=== PATIENT | female | born 1985 | race Caucasian/White ===

== ENCOUNTER 2024-06-09 10:41 | Outpatient (CLI) | payer BC | END 2024-06-09 10:42 | disposition home or self-care (01) | LOC: SCSRAD 10:41 | PROVIDERS: ATTEND Nurse Practitioner Family | DX: R50.9 Fever, unspecified (principal); J18.1 Lobar pneumonia, unspecified organism | CPT/HCPCS: 71046 ==

== ENCOUNTER 2024-06-21 11:30 | Emergency (ER) | payer BC ==
[2024-06-21 12:36] LABS: #Basophils 0.07 10x3/uL (0.0-0.2); %Eosinophils 0.8 % (0.0-10.0); %Lymphocytes 31.6 % (21.0-51.0); %Monocytes 6.4 % (0.0-10.0); %Neutrophils 59.9 % (42.0-75.0); Hematocrit 43.1 % (36.0-47.0); Hemoglobin 14.7 g/dL (12.0-16.0); Mean Corpuscular HGB CONC 34.1 g/dL (32.0-36.0); Mean Corpuscular Hemoglobin 31.7 pg (27.0-31.0); Mean Corpuscular Volume 92.9 fL (78.0-98.0); Mean Platelet Volume 8.6 fL (7.4-10.4); Platelet Count 356 10x3/uL (130-400); RBC Distribution Width 12.5 % (11.5-14.5); Red Blood Cell (RBC) Count 4.64 mill/uL (4.20-5.40)
[2024-06-21 13:03] LABS: ALT (SGPT) 23 U/L (8-55); AST (SGOT) 18 U/L (5-34); Albumin 3.5 g/dL (3.5-5.0); Alkaline Phosphatase 60 U/L (40-110); Anion Gap 13 mmol/L (10-20); BUN (Urea Nitrogen) 16 mg/dL (7.0-18.7); Bilirubin, Total 0.4 mg/dL (0.2-1.2); Calc. Creatinine Clearance 0 mL/min (70-130); Calcium 9.1 mg/dL (7.8-10.44); Carbon Dioxide 18 mmol/L (22-29); Chloride 109 mmol/L (98-107); Estimated GFR 88; Glucose 99 mg/dL (70-105); Magnesium 1.9 mg/dL (1.6-2.6); Potassium 4.3 mmol/L (3.5-5.1); Protein, Total 7.5 g/dL (6.0-8.3); Sodium 136 mmol/L (136-145)
[2024-06-21 13:06] LABS: Troponin I Less than 0.010 ng/mL (< 0.028)
== END 2024-06-21 16:28 | disposition home or self-care (01) ==
LOC: ERS 11:30
DX: J18.9 Pneumonia, unspecified organism (principal); E03.9 Hypothyroidism, unspecified; Z79.899 Other long term (current) drug therapy
CPT/HCPCS: 71046; 80053; 83605; 83735; 83880; 84484; 85025; 87040; 87077; 87149; 93005; 94640; 94760

== ENCOUNTER 2024-06-22 16:44 | Observation (INO) | payer BC ==
[2024-06-22] MEDS ORDERED: cefTRIAXone (ROCEPHIN) 2 GM VIAL ONE (17:30)
[2024-06-22] MEDS ORDERED: Sodium Chloride 0.9% 100 ML ONE (17:30)
[2024-06-22 18:01] LABS: #Basophils 0.07 10x3/uL (0.0-0.2); %Basophils 1.1 % (0.0-1.0); %Eosinophils 1.2 % (0.0-10.0); %Monocytes 6.6 % (0.0-10.0); %Neutrophils 50.9 % (42.0-75.0); Hematocrit 41.5 % (36.0-47.0); Mean Corpuscular HGB CONC 33.7 g/dL (32.0-36.0); Mean Corpuscular Hemoglobin 31.5 pg (27.0-31.0); Mean Corpuscular Volume 93.3 fL (78.0-98.0); Mean Platelet Volume 8.9 fL (7.4-10.4); Platelet Count 301 10x3/uL (130-400); RBC Distribution Width 12.5 % (11.5-14.5); Red Blood Cell (RBC) Count 4.45 mill/uL (4.20-5.40)
[2024-06-22 18:22] LABS: ALT (SGPT) 20 U/L (8-55); AST (SGOT) 17 U/L (5-34); Albumin 3.4 g/dL (3.5-5.0); Alkaline Phosphatase 54 U/L (40-110); Anion Gap 14 mmol/L (10-20); BUN (Urea Nitrogen) 15 mg/dL (7.0-18.7); Bilirubin, Total 0.5 mg/dL (0.2-1.2); Calc. Creatinine Clearance 0 mL/min (70-130); Calcium 8.6 mg/dL (7.8-10.44); Carbon Dioxide 19 mmol/L (22-29); Chloride 107 mmol/L (98-107); Estimated GFR 100; Globulin 3.6 g/dL (2.4-3.5); Glucose 89 mg/dL (70-105); Potassium 4.2 mmol/L (3.5-5.1); Sodium 136 mmol/L (136-145)
[2024-06-22 19:41] LABS: Bacteria/HPF None Seen HPF (None Seen); Bilirubin Negative (Negative); Blood, Urine Negative (Negative); CAUTI Indications for Culture Immunosuppressed; Clarity Clear (Clear); Glucose, Urine (Dipstick) Normal (Negative); Ketone, Urine 10 mg/dL (Negative); Leukocyte Negative Leu/uL (Negative); Nitrite Negative (Negative); Protein, Urine (Dipstick) 10 mg/dL (Neg-Trace); RBC/HPF 0-3 HPF (0-3); Specific Gravity, Urine 1.028 (1.002-1.036); Urobilinogen Normal mg/dL (Less than 2); WBC/HPF 0-3 HPF (0-3); pH, Urine 6.5 (5.0-9.0)
[2024-06-22 19:42] LABS: Urine Culture Reflex No No; Urine Culture Reflex Yes Yes
[2024-06-22] MEDS ORDERED: Ondansetron PF 4 MG/2 ML Vial IVP PRN (20:46)
[2024-06-22] MEDS ORDERED: Calcium Carbonate 500 MG ChewTAB PO PRN (20:46)
[2024-06-22] MEDS ORDERED: Acetaminophen 650 MG Suppository PR PRN (20:46)
[2024-06-22] MEDS ORDERED: Ondansetron ODT 4 MG TAB PO PRN (20:46)
[2024-06-22] MEDS ORDERED: Senokot S 8.6-50 MG TAB PO PRN (20:46)
[2024-06-22] MEDS ORDERED: Acetaminophen 325 MG TAB PO PRN (20:46)
[2024-06-22] MEDS ORDERED: Albuterol 200 PUFF (6.7GM INHALER) INH PRN (20:49)
[2024-06-22] MEDS ORDERED: Benzonatate 100 MG CAP PO PRN (20:50)
[2024-06-22] MEDS ORDERED: Ketorolac Tromethamine 30 MG (1 mL) VIAL IVP PRN (21:00)
[2024-06-22] MEDS ORDERED: clonazePAM 0.5 MG TAB PO PRN (21:54)
[2024-06-22] MEDS ORDERED: Azithromycin 500 MG in Sodium Chloride 0.9% 250 ML 250 ML IVPB SCH (22:00)
[2024-06-22 23:16] VITALS: BMI 42.3
[2024-06-22] MEDS: Trospium 20 MG TAB PO SCH (23:47)
[2024-06-22] MEDS: Benztropine 1 MG TAB PO SCH (23:48)
[2024-06-22] MEDS: Divalproex Sodium DR 500 MG TAB PO SCH (23:48)
[2024-06-22] MEDS: Famotidine 20 MG TAB PO SCH (23:51)
[2024-06-23] MEDS: Levothyroxine Sodium 75 MCG TAB PO SCH (05:27)
[2024-06-23 06:17] LABS: #Basophils 0.05 10x3/uL (0.0-0.2); %Basophils 0.8 % (0.0-1.0); %Eosinophils 1.5 % (0.0-10.0); %Lymphocytes 57.3 % (21.0-51.0); %Monocytes 7.5 % (0.0-10.0); %Neutrophils 32.7 % (42.0-75.0); Hematocrit 38.1 % (36.0-47.0); Hemoglobin 12.9 g/dL (12.0-16.0); Mean Corpuscular HGB CONC 33.9 g/dL (32.0-36.0); Mean Corpuscular Hemoglobin 31.3 pg (27.0-31.0); Mean Corpuscular Volume 92.5 fL (78.0-98.0); Mean Platelet Volume 9.2 fL (7.4-10.4); Platelet Count 273 10x3/uL (130-400); RBC Distribution Width 12.6 % (11.5-14.5); Red Blood Cell (RBC) Count 4.12 mill/uL (4.20-5.40)
[2024-06-23 06:33] LABS: Anion Gap 11 mmol/L (10-20); BUN (Urea Nitrogen) 10 mg/dL (7.0-18.7); Carbon Dioxide 21 mmol/L (22-29); Chloride 108 mmol/L (98-107); Potassium 3.9 mmol/L (3.5-5.1); Sodium 136 mmol/L (136-145)
[2024-06-23 06:34] LABS: Calc. Creatinine Clearance 220 mL/min (70-130); Calcium 8.4 mg/dL (7.8-10.44); Estimated GFR 107; Glucose 97 mg/dL (70-105)
[2024-06-23] MEDS: Cefepime 1 GM in Sodium Chloride 0.9% 100 ML IVPB SCH (08:24)
[2024-06-23] MEDS: Trospium 20 MG TAB PO SCH (08:27)
[2024-06-23] MEDS: Divalproex Sodium DR 500 MG TAB PO SCH (08:27)
[2024-06-23] MEDS: Aripiprazole 15 MG TAB PO SCH (08:30)
[2024-06-23] MEDS: Benztropine 1 MG TAB PO SCH (08:31)
[2024-06-23] MEDS: guaiFENesin ER 600 MG TAB PO SCH (08:31)
[2024-06-23] MEDS: Ipratropium/Albuterol 3 ML NEB NEB PRN (09:08)
[2024-06-23 12:44] VITALS: BP 125/84; TEMP 97.8
[2024-06-23] MEDS ORDERED: cefTRIAXone\\ROCEPHIN 1 GM in Sodium Chloride 0.9% 100 ML IVPB SCH (20:00)
== END 2024-06-23 13:07 | disposition home or self-care (01) ==
LOC: ERS 16:44 → T4-B 20:45
PROVIDERS: ADMIT Student in an Organized Health Care Education/Training Program; ATTEND Hospitalist
DX: R78.81 Bacteremia (principal); E03.9 Hypothyroidism, unspecified; H54.7 Unspecified visual loss; F41.9 Anxiety disorder, unspecified; F32.A Depression, unspecified; Z90.49 Acquired absence of other specified parts of digestive tract; Z88.1 Allergy status to other antibiotic agents; Z79.890 Hormone replacement therapy; Z79.899 Other long term (current) drug therapy
CPT/HCPCS: 36415; 71045; 80048; 80053; 81001; 83605; 85025; 87040; 87086; 94640; 94760; 96365; 96375; G0378; J0692; J0696; J7620